=== PATIENT | male | born 1950 | race Caucasian/White ===

== ENCOUNTER 2018-12-20 06:56 | Emergency (ER) | payer MEDICARE, BC ==
[~2018-12-20] VITALS: Ht 167.6 cm; Wt 100.0 kg
[~2018-12-20 06:56] MED LIST: ASPI-817 PO; COLC0.6T6 ORAL; ROSU40TA23 ORAL; SPIR25TA PO; [UNRECOGNIZED DRUG - CODE] ORAL
[2018-12-20 06:58] VITALS: Ht 167.6 cm; Wt 100.0 kg
[2018-12-20] MEDS ORDERED: FUROSEMIDE 40 MG INJ IV ONE (09:00)
[2018-12-20 11:20] VITALS: BP 135/85; PULSE 66; RESP 18
== END 2018-12-20 11:20 | disposition home or self-care (01) ==
LOC: EEVIPCON 06:56 → E/R 06:56
DX: I11.0 Hypertensive heart disease with heart failure (principal); I50.9 Heart failure, unspecified; Z79.82 Long term (current) use of aspirin; Z98.61 Coronary angioplasty status
CPT/HCPCS: 36415; 71045; 80053; 83735; 83880; 84484; 85025; 93005; 93306; 96374; 99285; J1940